=== PATIENT | female | born 2000 | race Caucasian/White ===

== ENCOUNTER 2018-04-13 12:53 | Emergency (ER) | payer OTHER ==
[2018-04-13] MEDS ORDERED: CEFTRIAXONE 1 GM INJ IM (14:30)
[2018-04-13] MEDS: DEXAMETHASONE 10 MG/ML 1 ML INJ IV (14:38)
[2018-04-13] MEDS: CEFTRIAXONE 1 GM/50 ML (PMX) 50 ML IVPB (14:38)
== END 2018-04-13 16:17 | disposition home or self-care (01) ==
LOC: FTE 12:53
DX: L02.415 Cutaneous abscess of right lower limb (principal)
CPT/HCPCS: 10060; 96374; 96375; 99284-25

== ENCOUNTER 2018-05-14 19:41 | Emergency (ER) | payer MEDICAID, OTHER ==
[2018-05-14] MEDS: CEPHALEXIN 500 MG CAP PO (20:39)
[2018-05-14] MEDS: IBUPROFEN 600 MG TAB PO (20:40)
[2018-05-14] MEDS: TRIMETHOPRIM/SULFAMETHOX (DS) TAB PO (20:40)
== END 2018-05-14 20:55 | disposition home or self-care (01) ==
LOC: FTE 19:41
DX: L02.411 Cutaneous abscess of right axilla (principal)
CPT/HCPCS: 99283; Z7502

== ENCOUNTER 2018-05-17 21:03 | Emergency (ER) | payer MEDICAID | END 2018-05-18 01:27 | disposition home or self-care (01) | LOC: FTE 05-18 01:27 | DX: L02.411 Cutaneous abscess of right axilla (principal) | CPT/HCPCS: 10061; 76536; 99284-25 ==

== ENCOUNTER 2018-05-20 13:31 | Emergency (ER) | payer MEDICAID | END 2018-05-20 15:00 | disposition home or self-care (01) | LOC: FTE 13:31 | DX: L02.413 Cutaneous abscess of right upper limb (principal) | CPT/HCPCS: 99281 ==

== ENCOUNTER → 2018-08-28 | Emergency (ER) | payer OTHER, MEDICAID ==
[2018-08-28] MEDS: LIDOCAINE 1% (MPF) 5 ML VIAL INFIL (16:55)
[2018-08-28] MEDS: KETOROLAC 30 MG INJ IM (16:57)
== END | disposition home or self-care (01) ==
LOC: FTE 14:58
DX: L02.411 Cutaneous abscess of right axilla (principal)
CPT/HCPCS: 10060; 81025; 96372; 99284-25

== ENCOUNTER 2018-08-30 14:48 | Emergency (ER) | payer OTHER | END 2018-08-30 15:34 | disposition home or self-care (01) | LOC: FTE 15:34 | DX: Z48.01 Encounter for change or removal of surgical wound dressing (principal) | CPT/HCPCS: 99281; Z7502 ==